=== PATIENT | male | born 1990 | race Caucasian/White ===

== ENCOUNTER 2017-01-29 22:11 | Emergency (ER) | payer MEDICAID ==
[~2017-01-29] VITALS: Ht 193 cm; Wt 81.6 kg
[2017-01-30 00:23] VITALS: BP 121/73
--- NOTE | 2017-01-30 00:27 | NUR ---
patient to er bed
[2017-01-30 01:08] LABS: BASOPHILS % (AUTO) 0.3 % (0.0-2.0); EOSINOPHILS # (AUTO) 0.1 /CMM (0.0-0.7); EOSINOPHILS % (AUTO) 0.8 % (0.0-6.0); HEMATOCRIT 43 % (39-51); HEMOGLOBIN 14.4 g/dL (13.5-17.5); LYMPHOCYTES # (AUTO) 0.9 /CMM (0.8-4.8); MEAN CORPUSCULAR HEMOGLOBIN 29 PG (26.0-33.0); MEAN CORPUSCULAR HGB CONC 33 g/dl (31.0-36.0); MEAN CORPUSCULAR VOLUME 86 fL (80-96); MONOCYTES # (AUTO) 0.7 /CMM (0.1-1.30); MONOCYTES % (AUTO) 5.1 % (2.0-12.0); NEUTROPHILS # (AUTO) 11.3 /CMM (1.8-8.9); NEUTROPHILS % (AUTO) 86.8 % (43.0-81.0); PLATELET COUNT (AUTO) 226 /CMM (150-450); RDW COEFFICIENT OF VARIATION 12.4 (11.5-15.0); RED BLOOD CELL COUNT(AUTO) 5.03 MIL/uL (4.5-6.0)
[2017-01-30 01:22] LABS: CALCIUM, SERUM 9.1 mg/dL (8.5-10.1); CREATININE 1.1 mg/dL (0.6-1.3); POTASSIUM 4.4 mmol/L (3.5-5.1)
[2017-01-30 01:29] LABS: ALBUMIN 4.1 g/dL (3.4-5.0); BILIRUBIN,DIRECT 0.1 mg/dL (0.0-0.2); BILIRUBIN,TOTAL 0.3 mg/dL (0.2-1.0); TOTAL PROTEIN, SERUM 6.9 g/dL (6.4-8.2)
[2017-01-30 02:00] LABS: APPEARANCE,URINE CLEAR (CLEAR); BILIRUBIN,URINE NEGATIVE (NEGATIVE); BLOOD, URINE NEGATIVE Ery/uL (NEGATIVE); COLOR,URINE YELLOW (YELLOW); KETONES,URINE NEGATIVE (NEGATIVE); LEUKOCYTE ESTERASE ,URINE NEGATIVE (NEGATIVE); NITRITE, URINE NEGATIVE (NEGATIVE); PROTEIN,URINE NEGATIVE (NEGATIVE); UGLUCOSE NEGATIVE (NEGATIVE); UROBILINOGEN,URINE 0.2 EU/dL (0.2)
== END 2017-01-30 02:23 | disposition home or self-care (01) ==
LOC: ER 22:23
DX: R56.9 Unspecified convulsions (principal); S00.83XA Contusion of other part of head, initial encounter; X58.XXXA Exposure to other specified factors, initial encounter; Y93.89 Activity, other specified; Y92.89 Other specified places as the place of occurrence of the external cause; Y99.8 Other external cause status
CPT/HCPCS: 36415; 70450; 71010; 80048; 80076; 81001; 85025; 99285; A4606; Z7610; 81000-TC

== ENCOUNTER 2017-04-24 10:18 | Emergency (ER) | payer MEDICAID ==
[~2017-04-24] VITALS: Ht 193 cm; Wt 74.8 kg
[2017-04-24 10:23] VITALS: BP 116/64
[2017-04-24] MEDS ORDERED: KETOROLAC TROMETHAMINE INJ 30 MG/ML VIAL ONE (10:58)
[2017-04-24] MEDS ORDERED: DIAZEPAM 5 MG TABLET ONE (10:58)
[2017-04-24] MEDS ORDERED: KETOROLAC TROMETHAMINE INJ 60 MG/2 ML VIAL IM ONE (11:00)
[2017-04-24] MEDS ORDERED: DIAZEPAM 10 MG TABLET PO ONE (11:00)
== END 2017-04-24 11:57 | disposition home or self-care (01) ==
LOC: ER 10:24
DX: M62.830 Muscle spasm of back (principal); G40.909 Epilepsy, unspecified, not intractable, without status epilepticus
CPT/HCPCS: 71045; 96372; 99283; A4606; J1885; Z7610